=== PATIENT | male | born 1980 | race Caucasian/White ===

== ENCOUNTER → 2016-11-24 | Outpatient (CLI) | payer BC ==
[2014-03-13 03:29] VITALS: BP 145/92
--- NOTE | 2016-11-24 09:49 | US ---
HISTORY: Right upper quadrant pain Study: Right upper quadrant ultrasound Comparison: None Technique: Multiple grayscale sonographic images were obtained peer E Findings: The liver was normal in size and configuration and without evidence for cysts masses or biliary duct al dilatation. No gallstones are present within the gallbladder. Gallbladder wall thickness was norm al. The common bile duct measured 2.7 centimeters. The head and body of the pancreas appeared normal . The tail was obscured by overlying bowel gas. The right kidney measured 11 point 7 x 5.9 by 6.6 ce ntimeters. No solid masses, hydronephrosis, stones, or perinephric fluid collections were identified . IMPRESSION: No significant abnormality identified Reported By:
== END ==
LOC: RAD 08:48
PROVIDERS: ATTEND Nurse Practitioner Family
DX: R10.11 Right upper quadrant pain (principal)
CPT/HCPCS: 76705

== ENCOUNTER → 2016-11-26 | Outpatient (CLI) | payer BC ==
[2014-03-13 03:29] VITALS: BP 145/92
[~2016-11-26] MED LIST: NS 100 ML IV 100 ML IV ONE
--- NOTE | 2016-11-26 15:54 | CT ---
HISTORY: Right upper quadrant, periumbilical pain Study: CT abdomen pelvis with contrast Comparison: None Technique: Axial post-contrast images with coronal and sagittal reformats. Dose reduction procedures were used with MA/kv adjusted for body size. Findings: The lung bases are clear. The liver, spleen, adrenal glands, and pancreas are within normal limits. No opaque stones are visible within the gallbladder. The kidneys are unobstructed and without stones or masses. There is a tiny cortical cyst present on the left. No ureteral calculi are identified. T he appendix is normal. No significant enlarged intraperitoneal or retroperitoneal lymphadenopathy is identified. There are no findings suggestive of diverticulitis or colitis. Examination of the pelvi s demonstrated no evidence for pelvic masses, pelvic fluid, or pelvic lymphadenopathy. No bladder ab normality is identified. No lytic or blastic skeletal lesions are identified. IMPRESSION: No significant abnormality identified Reported By:
== END ==
LOC: RAD 08:46
PROVIDERS: ATTEND Nurse Practitioner Family
DX: R10.11 Right upper quadrant pain (principal); R19.01 Right upper quadrant abdominal swelling, mass and lump; R10.33 Periumbilical pain; K21.9 Gastro-esophageal reflux disease without esophagitis
CPT/HCPCS: 74177; A4222